=== PATIENT | male | born 1945 | race Caucasian/White ===

== ENCOUNTER 2016-10-29 08:10 | Outpatient (CLI) ==
[2016-10-29 13:09] LABS: BASOPHILS % (AUTO) 0.6 % (0.0-3.0); BILIRUBIN,URINE Negative (NEGATIVE); EOSINOPHILS # (AUTO) 0.2 K/ul (0.0-0.7); EOSINOPHILS % (AUTO) 3.1 % (0.0-7.0); HEMATOCRIT 42.7 % (42.0-52.0); HEMOGLOBIN 13.9 g/dl (14.0-18.0); IMMATURE GRANULOCYTE % (AUTO) 0.4 % (0.0-5.0); KETONES,URINE Negative (NEGATIVE); LEUKOCYTE ESTERASE ,URINE Negative (NEGATIVE); LYMPHOCYTES # (AUTO) 1.4 K/uL (0.60-3.4); LYMPHOCYTES % (AUTO) 24.8 (10.0-50.0); MEAN CORPUSCULAR HEMOGLOBIN 30.4 pg (27.0-31.0); MEAN CORPUSCULAR HGB CONC 32.6 (31.8-35.4); MEAN CORPUSCULAR VOLUME 93.4 fl (80.0-94.0); MONOCYTES # (AUTO) 0.5 K/uL (0.4-2.0); MONOCYTES % (AUTO) 8.3 (0-10); NEUTROPHILS # (AUTO) 3.4 K/ul (2.0-6.9); NEUTROPHILS % (AUTO) 62.8; NITRITE,URINE Negative (NEGATIVE); PLATELET COUNT 212 10^3/uL (140-440); PROTEIN,URINE Negative (NEGATIVE); RED BLOOD COUNT 4.57 10^6/ul (4.70-6.10); URINE, BLOOD Negative (NEGATIVE); WHITE BLOOD COUNT 5.45 K/ul (4.2-10.2)
[2016-10-29 13:12] LABS: ADD URINE MICROSCOPIC NO
[2016-10-29 13:22] LABS: ALBUMIN 3.8 g/dL (3.4-5.0); BILIRUBIN,DIRECT 0.29 mg/dL (0.00-0.30); BILIRUBIN,TOTAL 0.72 mg/dL (0.00-1.20); BUN/CREATININE RATIO 11.36; CALCIUM 9.4 mg/dL (8.2-10.2); CHOL/HDL RATIO 4.3 (4.5-6.4); CREATININE 0.88 mg/dL (0.60-1.10); TOTAL PROTEIN 7.6 g/dL (5.8-8.1)
[2016-10-29 14:43] LABS: ERYTHROCYTE SEDIMENTATION RATE 26 mm/hr (0-15); ESR INTERNAL QC INTERNAL QC VALID
== END 2016-10-29 08:11 | disposition home or self-care (01) ==
LOC: LAB 08:10
PROVIDERS: ATTEND Internal Medicine Rheumatology
DX: M06.9 Rheumatoid arthritis, unspecified (principal); M15.0 Primary generalized (osteo)arthritis; M79.641 Pain in right hand; R53.83 Other fatigue; E11.9 Type 2 diabetes mellitus without complications; E78.5 Hyperlipidemia, unspecified; Z79.899 Other long term (current) drug therapy; K21.9 Gastro-esophageal reflux disease without esophagitis
CPT/HCPCS: 36415; 80053; 80061; 80074; 81001; 82248; 83036; 84100; 85025; 85651; 86140

== ENCOUNTER 2017-01-11 08:09 | Outpatient (CLI) ==
[2017-01-11 13:45] LABS: HEMATOCRIT 40.6 % (42.0-52.0); HEMOGLOBIN 13.7 g/dl (14.0-18.0); MEAN CORPUSCULAR HEMOGLOBIN 31.4 pg (27.0-31.0); MEAN CORPUSCULAR HGB CONC 33.7 (31.8-35.4); MEAN CORPUSCULAR VOLUME 92.9 fl (80.0-94.0); PLATELET COUNT 190 10^3/uL (140-440); RED BLOOD COUNT 4.37 10^6/ul (4.70-6.10); WHITE BLOOD COUNT 5.06 K/ul (4.2-10.2)
[2017-01-11 14:12] LABS: ALBUMIN 3.7 g/dL (3.4-5.0); BILIRUBIN,DIRECT 0.25 mg/dL (0.00-0.30); BILIRUBIN,TOTAL 0.6 mg/dL (0.00-1.20); CREATININE 0.84 mg/dL (0.60-1.10); TOTAL PROTEIN 6.5 g/dL (5.8-8.1)
[2017-01-11 14:30] LABS: ERYTHROCYTE SEDIMENTATION RATE 17 mm/hr (0-15); ESR INTERNAL QC INTERNAL QC VALID
[2017-01-18 07:20] LABS: C-REACTIVE PROTEIN 2.3 mg/L (0.0-4.9)
== END 2017-01-11 08:10 | disposition home or self-care (01) ==
LOC: LAB 08:09
PROVIDERS: ATTEND Internal Medicine Rheumatology
DX: M06.9 Rheumatoid arthritis, unspecified (principal); M15.0 Primary generalized (osteo)arthritis; M79.641 Pain in right hand; R10.13 Epigastric pain; Z79.899 Other long term (current) drug therapy
CPT/HCPCS: 36415; 80074; 80076; 82565; 85027; 85651; 86140

== ENCOUNTER 2017-04-20 09:43 | Outpatient (CLI) ==
[2017-04-20 13:25] LABS: BASOPHILS % (AUTO) 0.5 % (0.0-3.0); EOSINOPHILS # (AUTO) 0.2 K/ul (0.0-0.7); EOSINOPHILS % (AUTO) 2.7 % (0.0-7.0); HEMATOCRIT 39.9 % (42.0-52.0); HEMOGLOBIN 13.5 g/dl (14.0-18.0); IMMATURE GRANULOCYTE % (AUTO) 0.2 % (0.0-5.0); LYMPHOCYTES # (AUTO) 1.2 K/uL (0.60-3.4); LYMPHOCYTES % (AUTO) 20.6 (10.0-50.0); MEAN CORPUSCULAR HEMOGLOBIN 30.9 pg (27.0-31.0); MEAN CORPUSCULAR HGB CONC 33.8 (31.8-35.4); MEAN CORPUSCULAR VOLUME 91.3 fl (80.0-94.0); MONOCYTES # (AUTO) 0.5 K/uL (0.4-2.0); MONOCYTES % (AUTO) 8.9 (0-10); NEUTROPHILS # (AUTO) 3.9 K/ul (2.0-6.9); NEUTROPHILS % (AUTO) 67.1; PLATELET COUNT 221 10^3/uL (140-440); RED BLOOD COUNT 4.37 10^6/ul (4.70-6.10); WHITE BLOOD COUNT 5.83 K/ul (4.2-10.2)
[2017-04-20 13:27] LABS: ALBUMIN 3.7 g/dL (3.4-5.0); BILIRUBIN,DIRECT 0.22 mg/dL (0.00-0.30); BILIRUBIN,TOTAL 0.43 mg/dL (0.00-1.20); CREATININE 0.84 mg/dL (0.60-1.10); TOTAL PROTEIN 6.8 g/dL (5.8-8.1)
[2017-04-20 14:17] LABS: ERYTHROCYTE SEDIMENTATION RATE 21 mm/hr (0-15); ESR INTERNAL QC INTERNAL QC VALID
== END 2017-04-20 09:44 | disposition home or self-care (01) ==
LOC: LAB 09:43
PROVIDERS: ATTEND General Practice
DX: E11.9 Type 2 diabetes mellitus without complications (principal); M06.9 Rheumatoid arthritis, unspecified; R53.83 Other fatigue; Z79.899 Other long term (current) drug therapy
CPT/HCPCS: 36415; 80076; 82565; 85025; 85651; 86141

== ENCOUNTER 2017-04-25 16:31 | Observation (INO) ==
[2017-04-25 17:41] VITALS: BMI 26.3
[2017-04-25 18:55] LABS: BASOPHILS % (AUTO) 0.5 % (0.0-3.0); EOSINOPHILS # (AUTO) 0.2 K/ul (0.0-0.7); HEMOGLOBIN 13.4 g/dl (14.0-18.0); IMMATURE GRANULOCYTE % (AUTO) 0.2 % (0.0-5.0); LYMPHOCYTES # (AUTO) 1.4 K/uL (0.60-3.4); MEAN CORPUSCULAR HEMOGLOBIN 30.3 pg (27.0-31.0); MEAN CORPUSCULAR HGB CONC 33.5 (31.8-35.4); MEAN CORPUSCULAR VOLUME 90.5 fl (80.0-94.0); MONOCYTES # (AUTO) 0.6 K/uL (0.4-2.0); MONOCYTES % (AUTO) 9.4 (0-10); NEUTROPHILS # (AUTO) 3.9 K/ul (2.0-6.9); NEUTROPHILS % (AUTO) 63.9; PLATELET COUNT 184 10^3/uL (140-440); RED BLOOD COUNT 4.42 10^6/ul (4.70-6.10); WHITE BLOOD COUNT 6.09 K/ul (4.2-10.2)
[2017-04-25 19:36] LABS: ALANINE AMINOTRANSFERASE 17 U/L (12-78); ALBUMIN 3.7 g/dL (3.4-5.0); ALBUMIN/GLOBULIN RATIO 1.19; ALKALINE PHOSPHATASE 51 U/L (56-119); ASPARTATE AMINO TRANSFERASE 18 U/L (15-37); BILIRUBIN,TOTAL 0.85 mg/dL (0.00-1.20); BLOOD UREA NITROGEN 11 mg/dL (7-18); BUN/CREATININE RATIO 12.79; CALCIUM 8.9 mg/dL (8.2-10.2); CARBON DIOXIDE 25 mmol/L (23-31); CHLORIDE 105 mmol/L (98-107); CREATINE KINASE 62 U/L; CREATININE 0.86 mg/dL (0.60-1.10); GLUCOSE 92 mg/dL (82-115); SODIUM 141 mmol/L (136-145); TOTAL PROTEIN 6.8 g/dL (5.8-8.1)
--- NOTE | 2017-04-25 20:08 | DI ---
Exam: Two x-rays of the chest. Comparison: 10/23/2015. Reason for exam: Chest pain. FINDINGS: No pneumothorax, pleural effusion, or focal consolidation. The cardiac silhouette is not enlarged. The imaged osseous structures are unremarkable without acute fracture. Impression: No acute cardiopulmonary process.
[2017-04-25] MEDS: ASPIRIN EC PO SCH (20:36)
[2017-04-25] MEDS ORDERED: CYCLOSPORINE OP SCH (21:00)
[2017-04-25] MEDS ORDERED: [UNRECOGNIZED DRUG - OTHER] IV SCH (22:30)
[2017-04-25] MEDS ORDERED: ADDITIVE ONLY IV SCH (22:30)
[2017-04-25] MEDS ORDERED: POTASSIUM CHLORIDE IV SCH (22:30)
[2017-04-25] MEDS ORDERED: INFUVITE ADULT IV SCH (22:30)
[2017-04-25] MEDS ORDERED: BENADRYL PO STA (22:32)
[2017-04-25] MEDS ORDERED: DECADRON 4 MG/ML SDV IM STA (22:32)
[2017-04-25 23:06] LABS: ADD URINE MICROSCOPIC NO; BILIRUBIN,URINE Negative (NEGATIVE); KETONES,URINE Negative (NEGATIVE); LEUKOCYTE ESTERASE ,URINE Negative (NEGATIVE); NITRITE,URINE Negative (NEGATIVE); PROTEIN,URINE Negative (NEGATIVE); URINE, BLOOD Negative (NEGATIVE)
[2017-04-25] MEDS ORDERED: INFUVITE ADULT IV ONE (23:11)
[2017-04-25 23:28] LABS: ABG BASE EXCESS 2 (-2.0-2.0); ABG HCO3 26.4 (22.0-26.0); ABG PCO2 40.4 mmHg (35-45); ABG PH 7.423 (7.35-7.45); ABG TCO2 28 (22.0-28.0)
[2017-04-25] MEDS: INFUVITE ADULT 10 ML in D5%-1/2NS-KCL 20 MEQ/L IV SOL 1,000 ML IV SCH (23:29)
--- NOTE | 2017-04-25 23:56 | CT ---
Exam: CT angiography of the chest History: Elevated D-dimer Technique: [address] of the chest utilizing CT angiography protocol. Multiplanar and th ree-dimensional reformations were performed. FINDINGS: Technically adequate for evaluation of pulmonary arteries and aorta. There are no pulmon mono artery filling defects. Trace right pleural fluid and right lower lobe nodular consolidative ar eas. 7 mm and 13 mm nodules are present. Atherosclerotic calcification of the aorta without aneury sm. No pathologic lymph node enlargement or abundance of mediastinum. No acute findings of the [address] wall soft tissues or bony thorax. No acute findings of the upper abdomen. Impression: 1. Right lower lobe consolidative nodular areas favoring infectious nodules. Follow-up recommended after treatment convalescence. 2. Trace right pleural fluid 3. No evidence of pulmonary artery thrombus
[2017-04-26 05:45] LABS: CHOL/HDL RATIO 3.9 (4.5-6.4)
[2017-04-26] MEDS ORDERED: GLUCOPHAGE PO SCH (08:00)
[2017-04-26] MEDS: PROTONIX PO SCH (08:19)
[2017-04-26] MEDS: CYCLOSPORINE OP SCH ×2 (08:20→21:57)
[2017-04-26] MEDS: FOLIC ACID PO SCH (08:23)
[2017-04-26] MEDS: CALCIUM 500 + VIT D 200 MG TABLET PO SCH (08:23)
[2017-04-26] MEDS: MULTIVITAMIN PO SCH (08:23)
[2017-04-26] MEDS ORDERED: NON-FORMULARY MEDICATION (Calcium Carbonate/Vitamin D3 [Calcium 600-Vit D3 200 Tablet] 1 E PO SCH (09:00)
[2017-04-26] MEDS ORDERED: ZOCOR PO SCH ×2 (09:00→21:00)
[2017-04-26] MEDS ORDERED: NON-FORMULARY MEDICATION (Simvastatin [Simvastatin] 20 MG) PO SCH ×22 (09:00)
[2017-04-26] MEDS ORDERED: [UNRECOGNIZED DRUG - MIXTURE] PO SCH (09:00)
[2017-04-26] MEDS ORDERED: FOLIC ACID 0.8 MG PO SCH (09:00)
[2017-04-26 09:07] LABS: ERYTHROCYTE SEDIMENTATION RATE 26 mm/hr (0-15); ESR INTERNAL QC INTERNAL QC VALID
--- NOTE | 2017-04-26 09:44 | PCM.CONS ---
CONSULTING PROVIDER: Dr. JACK OCONNELL ATTENDING PROVIDER: Dr. KORIN [facility] DATE OF SERVICE: 04/26/17 SUBJECTIVE: This 71 year old WHITE/ M was hospitalized 04/25/17. The patient is seen with Elena, Nurse Practitioner. The patient was admitted for chest pain yesterday. He is sitting in the chair and states he has no chest pain today. REVIEW OF SYSTEMS: CONSTITUTIONAL: No night sweats. No fatigue, malaise, lethargy. No fever or chills. HEENT: Eyes: No visual changes. No eye pain. No eye discharge. ENT: No runny nose. No epistaxis. No sinus pain. No odynophagia. No congestion. RESPIRATORY: No cough, no congestion. No hemoptysis. CARDIOVASCULAR: No angina symptoms. No CHF symptoms. No atypical chest pain for CAD. No palpitations. No shortness of breath. GASTROINTESTINAL: No abdominal pain. No nausea or vomiting. No diarrhea or constipation. No hematemesis. No hematochezia. GENITOURINARY: No urgency. No frequency. No dysuria. No hematuria. No obstructive symptoms. No discharge. No pain. No significant abnormal bleeding. MUSCULOSKELETAL: No musculoskeletal pain; no joint swelling. NEUROLOGICAL: Awake, alert, oriented to time, place and person. No headache. No neck pain. No syncope. No seizures. No dizziness. PSYCHIATRIC: Not anxious. No depression. No suicidal thoughts. No homicidal thoughts. SKIN: No rash. No lesions. No wounds. ENDOCRINE: No unexplained weight loss. No weight gain. HEMATOLOGIC/LYMPHATIC: No anemia. No purpura. No petechiae. No prolonged or excessive bleeding. No palpable lymph nodes. PHYSICAL EXAMINATION: GENERAL: The patient is awake, alert and oriented, sitting in chair in no distress. VITAL SIGNS: Temperature 97.0 F, Pulse 72, Respiratory Rate 18, BP 124/84, Pulse Ox 98% HEENT: Head normocephalic, atraumatic. Eyes: Extraocular muscles are intact. Pupils are equal, round and reactive to light and accommodation. Ears: No lesions. Nose appeared normal. Throat: No exudate or erythema. NECK: Supple. No JVD, no carotid bruit. No lymphadenopathy or thyromegaly. LUNGS: Clear to auscultation. Percussion note normal. Chest symmetrical. HEART: S1, S2, no S3. No murmurs. No cyanosis or clubbing. No ascites. Pulses: Dorsalis pedis and posterior tibial pulses +1 to +2 both sides. ABDOMEN: Soft. Non-tender. Bowel sounds active. No CVA tenderness. No mass felt. EXTREMITIES: No edema. Full range of motion of all extremities, equal. NEUROLOGIC: No focal deficit. Cranial nerves II through XII are grossly intact. No headache, no double vision or headache. SKIN: Not dry. Intact. Turgor-normal. LYMPHATIC: No palpable lymph nodes/no lymphedema. MUSCULOSKELETAL: Normal joints with no swelling. Muscle tone is normal. LAB REVIEW: 04/25/17 18:50 04/25/17 18:50 04/26/17 04:10: Triglycerides 73, Cholesterol 139, LDL Cholesterol, Calc 88, VLDL Cholesterol 15, HDL Cholesterol 36, Cholesterol/HDL Ratio 3.9 L 04/25/17 23:00: Urine Color Yellow, Urine Clarity Clear, Urine pH 7.0, Ur Specific [place] 1.015, Urine Protein Negative, Urine Glucose (UA) Negative, Urine Ketones Negative, Urine Blood Negative, Urine Nitrite Negative, Urine Bilirubin Negative, Urine Urobilinogen 0.2, Ur Leukocyte Esterase Negative 04/25/17 22:23: Puncture Site Rr, O2 Saturation 97.0, ABG pH 7.423, ABG pCO2 40.4, ABG pO2 89.0, ABG HCO3 26.4 H, ABG Total CO2 28, ABG Base Excess 2, Osman Test +, FiO2 % 21.0 04/25/17 21:45: Hemoglobin A1c 6.0 04/25/17 21:40: D-Dimer (Manual) 820.74 04/25/17 18:50: WBC 6.09, RBC 4.42 L, Hgb 13.4 L, Hct 40.0 L, MCV 90.5, MCH 30.3 , MCHC 33.5, RDW Coeff of Dev 13.2, Plt Count 184, Immature Gran % (Auto) 0.2, Neut % (Auto) 63.9, Lymph % (Auto) 23.0, [place] % (Auto) 9.4, Eos % (Auto) 3.0, Baso % (Auto) 0.5, Immature Gran # (Auto) 0.0, Neut # 3.9, Lymph # 1.4, [place] # 0.6, Eos # 0.2, Baso # 0.0, Sodium 141, Potassium 4.0, Chloride 105, Carbon Dioxide 25, Anion Gap 15.0, BUN 11, Creatinine 0.86, Estimated GFR (MDRD) 87.00 , BUN/Creatinine Ratio 12.79, Glucose 92, Calcium 8.9, Total Bilirubin 0.85, AST 18, ALT 17, Alkaline Phosphatase 51 L, Total Creatine Kinase 62, Troponin I < 0.0100, Total Protein 6.8, Albumin 3.7, Globulin 3.1, Albumin/Globulin Ratio 1.19, TSH 1.382 ASSESSMENT: 1. Chest pain 2. Dyslipidemia 3. Diabetes mellitus Type 2 4. Rheumatoid arthritis 5. Anemia 6. GERD RECOMMENDATIONS/PLAN: 1. Sed rate today 2. PFT 3. Echocardiogram 4. Dobutamine stress 5. Will continue to follow Plan and coordination of the patient's care discussed in the presence of Merchandise Coordinator and Nurse. CONDITION: Stable SCRIBED BY: Gilberto LEE scribed while in presence of service performed by Dr. JACK OCONNELL/ELENA KILPATRICK APRN on 04/26/17 ([id number])
[2017-04-26] MEDS: NON-FORMULARY MEDICATION (Tadalafil [Cialis] 5 MG) PO SCH (10:17)
[2017-04-26] MEDS: ROCEPHIN 2 GM in SODIUM CHLORIDE 100 ML IV SCH (10:21)
[2017-04-26] MEDS: ZITHROMAX 500 MG in SODIUM CHLORIDE 250 ML IV SCH (11:24)
--- NOTE | 2017-04-26 14:12 | ECHOSTRESS ---
Date of Exam: 04/26/17 Ordering Physician: JACK OCONNELL Reason for Echo: CHEST PAIN, STRESS TEST--NO ISCHEMIA M-Mode Normal Adult Results LV Dimensions Normal Adult Results AoV Opening excursions >1.6 LVEDD-base- 3.5-5.8 Ao root dimensions 2.0-3.7 LVESD-base- 3.1-4.6 L. Atrium dimensions 1.9-3.8 Post. Wall thickness 0.8-1.1 IV septum (thickness) 0.7-1.2 Post. Wall excursion 0.72-1.3 Septal motion Systolic motion R. Ventricular cavity 1.5-2.0 LVEF 60% Paradoxical septal wall motion 2-D: NORMAL LEFT VENTRICULAR CONTRACTILITY--RESTING AND POST EXERCISE M-MODE: MV: AV: TV: PV: CHAMBER SIZE: WALL MOTION: NORMAL LEFT VENTRICULAR CONTRACTILITY--RESTING AND POST EXERCISE PERICARDIUM: INTERPRETATION: 1. NORMAL LEFT VENTRICULAR CONTRACTILITY--RESTING AND POST EXERCISE MTDD
--- NOTE | 2017-04-26 14:32 | STRESSMOD ---
Ordering Physician: JACK OCONNELL Date of Test: 04/26/17 Medical History: CHEST PAIN Current Medications: SIMVASTATIN, METFORMIN, CIALIS, METHOTREXATE, IRON Physical Findings: S1, S2, NO S3 Resting EKG: SINUS RHYTHM/ NO ACUTE CHANGES Target Heart Rate: 124 STAGE MPH/GRADE HEART RATE BPM BLOOD PRESSURE mmhg RHYTHM S-T SEGMENT UP DOWN SYMPTOMS,COMMENTS At Rest 90 144/80 SR X NONE 1 1.7/0% 114 130/60 SR X NONE 2 1.7/5% 3 1.7/10% 4 2.5/12% 5 3.4/14% 6 4.2/16% 7 5.18% Immediately after 128 140/50 SR X FATIGUE Total Time: 5:01 Maximum Heart Rate Reached: 128 Reason for Termination: FATIGUE 4 MIN POST EXERCISE: HR 96 BPM, BP 162/60 MMHG, SR, +/- INTERPRETATION: 98% OXYGEN SATURATION WITH EXERCISE ON ROOM AIR 1. NO EVIDENCE OF ISCHEMIA BY ST-T WAVE 2. NO CHEST PAIN OR CHEST DISCOMFORT 3. BLOOD PRESSURE RESPONSE: NORMAL 4. NO ARRHYTHMIAS NORMAL LEFT VENTRICULAR CONTRACTILITY--RESTING AND POST EXERCISE MTDD
[2017-04-26] MEDS: ASPIRIN EC PO SCH (22:00)
[2017-04-26 22:42] VITALS: TEMP 97.5
[2017-04-27] MEDS ORDERED: INFUVITE ADULT IV ONE (02:21)
[2017-04-27] MEDS: INFUVITE ADULT 10 ML in D5%-1/2NS-KCL 20 MEQ/L IV SOL 1,000 ML IV SCH ×4 (03:01→12:31)
[2017-04-27] MEDS: PROTONIX PO SCH (05:57)
[2017-04-27] MEDS: MULTIVITAMIN PO SCH (08:05)
[2017-04-27] MEDS: FOLIC ACID PO SCH (08:05)
[2017-04-27] MEDS: CALCIUM 500 + VIT D 200 MG TABLET PO SCH (08:05)
[2017-04-27] MEDS: ROCEPHIN 2 GM in SODIUM CHLORIDE 100 ML IV SCH (08:05)
[2017-04-27] MEDS: CYCLOSPORINE OP SCH (08:06)
[2017-04-27] MEDS: NON-FORMULARY MEDICATION (Tadalafil [Cialis] 5 MG) PO SCH (08:07)
[2017-04-27] MEDS ORDERED: NON-FORMULARY MEDICATION (Ferrous Sulfate [Iron] 325 MG) PO SCH ×22 (09:00)
[2017-04-27] MEDS ORDERED: FERROUS SULFATE PO SCH ×2 (09:00→21:00)
--- NOTE | 2017-04-27 09:08 | PCM.CONS ---
CONSULTING PROVIDER: Dr. JACK OCONNELL ATTENDING PROVIDER: [facility]. [facility] DATE OF SERVICE: 04/27/17 SUBJECTIVE: This 71 year old WHITE/ M was hospitalized 04/25/17. The patient is seen in consultation. The patient is hospitalized with chest pain and cough. Chest pain seems more pleuritic in type. The patient has rheumatoid arthritis and is on Methotrexate. This could be chronic lung disease on basis of rheumatoid arthritis. Cardiovascular status is stable. REVIEW OF SYSTEMS: CONSTITUTIONAL: No night sweats. No fatigue, malaise, lethargy. No fever or chills. HEENT: Eyes: No visual changes. No eye pain. No eye discharge. ENT: No runny nose. No epistaxis. No sinus pain. No odynophagia. No congestion. RESPIRATORY: No cough, no congestion. No hemoptysis. CARDIOVASCULAR: No angina symptoms. No CHF symptoms. No chest pain now. No palpitations. No shortness of breath. No PND, no orthopnea. No chest discomfort with exertion. GASTROINTESTINAL: No abdominal pain. No nausea or vomiting. No diarrhea or constipation. No hematemesis. No hematochezia. GENITOURINARY: No urgency. No frequency. No dysuria. No hematuria. No obstructive symptoms. No discharge. No pain. No significant abnormal bleeding. MUSCULOSKELETAL: No musculoskeletal pain; no joint swelling. NEUROLOGICAL: Awake, alert, oriented to time, place and person. No headache. No neck pain. No syncope. No seizures. No dizziness. PSYCHIATRIC: Not anxious. No depression. No suicidal thoughts. No homicidal thoughts. SKIN: No rash. No lesions. No wounds. ENDOCRINE: No unexplained weight loss. No weight gain. HEMATOLOGIC/LYMPHATIC: No anemia. No purpura. No petechiae. No prolonged or excessive bleeding. No palpable lymph nodes. PHYSICAL EXAMINATION: GENERAL: The patient is awake, alert and oriented, standing beside the bed in no distress. VITAL SIGNS: Temperature 97.5 F, Pulse 64, Respiratory Rate 20, BP 134/76, Pulse Ox 98% HEENT: Head normocephalic, atraumatic. Eyes: Extraocular muscles are intact. Pupils are equal, round and reactive to light and accommodation. Ears: No lesions. Nose appeared normal. Throat: No exudate or erythema. NECK: Supple. No JVD, no carotid bruit. No lymphadenopathy or thyromegaly. LUNGS: Few dry creps at the bases. Percussion note normal. Chest symmetrical. HEART: S1, S2, no S3. No murmurs. No cyanosis or clubbing. No ascites. Pulses: Dorsalis pedis and posterior tibial pulses +1 to +2 both sides. ABDOMEN: Soft. Non-tender. Bowel sounds active. No CVA tenderness. No mass felt. EXTREMITIES: No pedal edema. Full range of motion of all extremities, equal. NEUROLOGIC: No focal deficit. Cranial nerves II through XII are grossly intact. No headache, no double vision or headache. SKIN: Not dry. Intact. Turgor-normal. LYMPHATIC: No palpable lymph nodes/no lymphedema. MUSCULOSKELETAL: Normal joints with no swelling. Muscle tone is normal. LAB REVIEW: 04/25/17 18:50 04/25/17 18:50 04/26/17 09:50: Procalcitonin < 0.05 04/26/17 04:20: ESR 26 H ASSESSMENT: 1. Chest pain, noncardiac with negative cardiac markers, EKG and stress echocardiogram. 2. The patient is being treated for bronchitis and pneumonia with chronic lung disease. 3. Cardiovascular status is stable. RECOMMENDATIONS/PLAN: I will sign out of case. Thanks for the referral. Plan and coordination of the patient's care discussed in the presence of Restaurant Crew Member and Nurse. CONDITION: Stable. SCRIBED BY: PHI LEVIN Resource Analyst scribed while in presence of service performed by Dr. JACK OCONNELL on 04/27/17 ([id number])
[2017-04-27] MEDS: ZITHROMAX 500 MG in SODIUM CHLORIDE 250 ML IV SCH (09:29)
[2017-04-27 09:57] VITALS: BP 142/69
--- NOTE | 2017-04-27 10:49 | CONS ---
DATE OF CONSULTATION: 04/26/17 The patient was seen with Nurse Practitioner REASON FOR CONSULTATION: Chest pain HISTORY OF PRESENT ILLNESS: The patient is a 71 year old white male hospitalized with chest pain on . The patient's chest pain is right shoulder going the front anteriorly like heaviness and tightness. It happened during three nights and past several days unrelated to exertion. He does all this routine activity of daily living with no problems at all with the chest tightness or pain. The patient is non- exertional. The patient had couple of times workup for this type of problem in some other hospital which was negative during past several years. REVIEW OF SYSTEMS: CONSTITUTIONAL: No night sweats. No fatigue, malaise, lethargy. No fever or chills. HEENT: Eyes: No visual changes. No eye pain. No eye discharge. ENT: No runny nose. No epistaxis. No sinus pain. No sore throat. No odynophagia. No ear pain. No congestion. RESPIRATORY: No cough, no congestion. No hemoptysis. CARDIOVASCULAR: No angina symptoms. No CHF symptoms. No atypical chest pain for CAD. No palpitations. No shortness of breath. GASTROINTESTINAL: No abdominal pain. No nausea or vomiting. No diarrhea or constipation. No hematemesis. No hematochezia. GENITOURINARY: No urgency. No frequency. No dysuria. No hematuria. No obstructive symptoms. No discharge. No pain. No significant abnormal bleeding. MUSCULOSKELETAL: No musculoskeletal pain. No joint swelling. NEUROLOGICAL: No headache. No neck pain. No syncope. No seizures. No dizziness. PSYCHIATRIC: Not anxious. No depression. No suicidal thoughts. No homicidal thoughts. SKIN: No rash. No lesions. No wounds. ENDOCRINE: No unexplained weight loss. No weight gain. HEMATOLOGIC/LYMPHATIC: No anemia. No purpura. No petechiae. No prolonged or excessive bleeding. No palpable lymph nodes. PHYSICAL EXAMINATION: GENERAL: The patient is oriented to time, place and person. VITAL SIGNS: Temperature 97, pulse 72, respiratory rate 18, blood pressure 124/ 84 and pulse ox 98%. HEENT: Head normocephalic, atraumatic. Eyes: Extraocular muscles are intact. Pupils are equal, round and reactive to light and accommodation. Ears: No lesions. Nose appeared normal. Throat: No exudate or erythema. NECK: Supple. No JVP, no carotid bruit. No lymphadenopathy or thyromegaly. LUNGS: Clear to auscultation. Percussion note normal. Chest symmetrical. HEART: S1, S2, no S3. No murmurs. No cyanosis or clubbing. No ascites. Pulses: Dorsalis pedis and posterior tibial pulses +1 bilaterally. PMI not palpable on auscultation. No pericardial rub. ABDOMEN: Soft. Nontender. Bowel sounds active. No CVA tenderness. No mass felt. EXTREMITIES: No edema. Full range of motion of all extremities, equal. NEUROLOGIC: No focal deficit. Cranial nerves II through XII are grossly intact. No headache, no double vision or headache. SKIN: Not dry. Intact. Turgor - normal. LYMPHATIC: No palpable lymph nodes/no lymphedema. MUSCULOSKELETAL: Normal joints with no swelling. Muscle tone is normal. LABS: EKG sinus rhythm, no acute changes. Telemetry sinus rhythm, no ST-T wave change. Cardiac markers are negative. Troponin negative. Hgb 13.4, hct 40, WBC 6 ,000 normal differential, creatinine 0.8, BUN 11, potassium 4. ASSESSMENT: 1. Chest pain, seems to be non-cardiac PLAN: 1. Echocardiogram and stress echo 2. The patient has several risk factors for coronary artery disease like hypertension, dyslipidemia. 3. History of Rheumatoid arthritis followed by Dr. Tilley. CONDITION: Stable. MTDD
--- NOTE | 2017-04-27 14:03 | HP ---
CHIEF COMPLAINT: Chest heaviness, pain uppermost anterior chest radiating around the neck towards the back upon taking a deep breath. SOURCE OF HISTORY: Patient and his . HISTORY OF PRESENT ILLNESS: The patient had experienced anterior chest heaviness March 10, 2017 and was seen at the emergency room in [place], [place]. The patient's D-Dimer was elevated and then had a CTA. No pulmonary emboli was noted, but the patient was found to have some subpleural nodules about 9 x 8 mm' s. There were small nodules that measured two to three mm's. The pleural was thickened. The patient was advised to have a repeat CT in about 6 months. The patient, today, presented because of the pain last night described as heaviness with pain upon taking a deep breath in the upper most area of the chest, bilateral radiating around the neck towards the back at about the same level. The patient did not have any diaphoresis or any shortness of breath, but his mentioned that indeed the patient has that and will take about a few days to rest. The pain doesn't seem to be related to the anterior chest heaviness to exertion. His mentioned that he had mowed his yard with a asian studies professor that is self propelled and never had any chest pain. Because of the anterior chest heaviness, as well as pain upon taking a deep breath, that he was advised admission. I did advise him that he would need a cardiac work-up and a consultation with Dr. Bailey who would subsequently perform the tests if he felt necessary. The patient's first reaction was he does not want to be admitted to the hospital. I did tell him that he needed a work-up. He told me that he had one a year ago, but I do not have any records of that being done at my direction. We don't have records of that also at the office. This patient was diagnosed to have rheumatoid arthritis and had seen two molder machine tender for the problem. He is prescribed Methotrexate by Dr. Tilley. PAST PERSONAL HISTORY: The patient had surgery to his ears from congenital problems. Chest pain and was at [place], [place] for the problem. Previous cholecystectomy recently. A colonoscopy 2012 and endoscopy 2012. FAMILY HISTORY: Two brothers are in good health. He had seven sisters, one had myocardial infarction, another sister had diabetes mellitus, another on has Lupus. There is some history of cancer, heart disease and diabetes in the family. Father had heart disease and mother had a fractured hip, otherwise unremarkable. SOCIAL HISTORY: The patient is and resides with his . He stopped smoking some time ago and is a social drinker. He denies any substance abuse. MEDICATIONS: Prior to this admission Calcium plus Vitamin D one tablet daily Multivitamin one daily Cialis 5 mg daily Folic Acid 800 mcg daily Protonix 40 mg daily Metformin 500 mg daily Simvastatin 20 mg daily Restasis one drop to the eye twice a day Ferrous Sulfate 325 mg tablet every two days Aspirin 81 mg daily Methotrexate Sodium 12.5 mg daily ALLERGIES: No known drug allergies. REVIEW OF SYSTEMS: CONSTITUTIONAL: The patient has no fever, no chills and no fatigue. STEAM CRANE OPERATOR: No headaches. No history of seizure problems. No history of syncope. The patient denies any ataxia. VISUAL: Denies any blurred vision, double vision or transient loss of vision. 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 The patient, however, is able to hear. He denies any tinnitus, pain or drainage. RESPIRATORY: The patient has no significant cough, but has pain during inspiration. The pain is mostly in the uppermost chest, anterior, radiating around the neck towards the back. CARDIOVASCULAR: The patient does have recurrent anterior chest heaviness with some shortness of breath without any diaphoresis or nausea or vomiting. GASTROINTESTINAL: Denies any dysphagia. The patient had endoscopy 2012. The patient weighs about the same since about six weeks ago. GENITOURINARY: The patient denies any pain on urination or frequency. MUSCULOSKELETAL: The patient had rheumatoid arthritis and has pain with the hand , as well as shoulders. INTEGUMENT: No rash or pruritus. ENDOCRINE: Denies any frequency or excessive thirst. HEMATOLOGIC: Denies any history of prolonged bleeding or easy bruising. PSYCHIATRIC: Affect is normal. PHYSICAL EXAMINATION: GENERAL: The patient is alert, oriented times four, not dyspneic, nor tachypneic without any chest pain. The patient, however, had recurrent anterior chest tightness or oppression or heaviness a few times in the last month and this month. The pain seemed to start from the right shoulder towards the neck and then the anterior chest with heaviness. His general appearance is good. VITAL SIGNS: On admission, temperature 97.6, pulse 67, blood pressure left 134/ 79, right 136/80, respiratory rate 18. He is 5'8", 173 pounds and 1.6 ounces. HEAD: Unremarkable. FACE: Symmetrical and equal with no facial weakness and no tenderness to palpation under pressure in the frontal or maxillary sinus areas. EYES: Pupils equal/reactive to light about 3 mm in size. Conjunctivae not pale. Sclerae not icteric. MOUTH: Unremarkable. THROAT: No inflammation, tumors or exudate. NECK: No masses. No bruit. No tenderness. No rigidity. CHEST: Essentially symmetrical and equal with some tenderness mostly in the right shoulder, posterior area, as well as anterior. There is no redness in the shoulders. LUNGS: Breath sounds are heard in both sides. No rales or wheezing. HEART: Audible and regular with good tones. No murmurs. ABDOMEN: Flat, soft with scar from previous cholecystectomy, laparoscopic. No remarkable tenderness. Bowel sounds are active and no masses palpable and no bruit. EXTERNAL GENITALIA: Not examined. RECTAL: Not performed. LOWER EXTREMITIES: Symmetrical and equal with no significant edema. Pedal pulses present. Volume somewhat diminished. UPPER EXTREMITIES: Symmetrical and equal. ASSESSMENT: 1. ANTERIOR CHEST OPPRESSION OR HEAVINESS, RULE OUT UNSTABLE ANGINA 2. PAIN UPON TAKING A DEEP BREATH, UPPER ANTERIOR CHEST RADIATING AROUND THE NECK TO THE BACK, PLEURITIS. 3. HISTORY OF THICKENED PLEURAL 4. HISTORY OF NODULES 9 X 8 MM'S 5. HISTORY OF CHRONIC TOBACCO USE, STOPPED SEVERAL YEARS AGO 6. ERECTILE DYSFUNCTION ON CIALIS 7. DIABETES MELLITUS TYPE II 8. HISTORY OF GASTROESOPHAGEAL REFLUX DISEASE, QUESTIONABLE, HAD ENDOSCOPY 2012 9. ANEMIA 10. HISTORY OF RHEUMATOID ARTHRITIS UNDER THE CARE OF A CORE LOADER 11. DYSLIPIDEMIA PLAN: 1. EKG, cardiac enzymes, chest x-ray. 2. CBC, CMP, urinalysis, TSH, A1C, D-Dimer. 3. Consultation with Dr. Bailey for further work-up with regards to the chest tightness or heaviness. 4. Probably repeat a chest CT with contrast tomorrow, but if the D-Dimer is elevated that he would have one today. This patient, according to him, had been exposed asbestos. MTDD
--- NOTE | 2017-04-27 14:48 | PN ---
DATE OF ENTRY: 04/25/17 Additional notes: The D-Dimer is elevated above 500 and with pleuritic pain, a CTA of chest to rule out pulmonary emboli is requested for tonight. His blood sugar is normal. The A1C was requested. Arterial blood gases are also requested to see if there is any desaturation. The patient's estimated GFR is 87. The BUN is 11, creatinine is 0.86. I did ask him about the CTA that was done in [place] and if he had any problems. He said he had a little bit of burning sensation in the upper lip to the right, but very small and maybe questionable swelling. I asked him how long did that last and he said two hours. He didn't have any rash, swelling or itching. Because of that questionable reaction, the patient is given Benadryl 25 mg p.o. and Decadron 4 mg IM. The p.o. was already given by the nurse. I wanted the nurse to wait for about 35 or 40 minutes before the CTA. I also did talk to the technologist, Kj. BENY
--- NOTE | 2017-04-28 13:43 | ECHO2D ---
Date of Exam: 04/26/17 [facility]ing Phys[facility] Reason for Echo: CHEST PAIN M-Mode Normal Adult Results LV Dimensions Normal Adult Results AoV Opening excursions >1.6 >1.6 LVEDD-base- 3.5-5.8 3.8 Ao root dimensions 2.0-3.7 3.8 LVESD-base- 3.1-4.6 L. Atrium dimensions 1.9-3.8 3.8 Post. Wall thickness 0.8-1.1 0.9 IV septum (thickness) 0.7-1.2 0.9 Post. Wall excursion 0.72-1.3 NORMAL Septal motion NORMAL Systolic motion R. Ventricular cavity 1.5-2.0 NORMAL LVEF 60% 63% Paradoxical septal wall motion NORMAL 2-D : 2-D M Mode Echocardiogram was performed using apical four chamber and left parasternal long and short axis views. Mitral, tricuspid and aortic valves appear to be normal. Contractility of the left ventricle seems to be normal, so is the cavity size. Left atrial cavity size and aortic root appear to be normal. There is no pericardial effusion. There is no thrombus noted in the left ventricular or left aortic cavity. No mitral valve prolapse noted. M-MODE: MV: NORMAL AV: NORMAL TV: NORMAL PV: CHAMBER SIZE: NORMAL WALL MOTION: NORMAL PERICARDIUM: NORMAL INTERPRETATION: 1. NORMAL 2 "D" "M" MODE ECHO MTDD
--- NOTE | 2017-04-29 10:31 | PN ---
DATE OF VISIT: 04/26/2017 The patient, today, is alert and oriented times four. This patient had the stress echo sometime in the early afternoon. The patient's stress test was negative for ischemia and echocardiogram was normal with a normal left ventricular ejection fraction at 63. The patient did not have any chest pain, however, the patient has an enlarging lesion in the right lower lobe. I told him that I would then continue the antibiotic until I have discussed this with the radiologist tomorrow as to the presence of the consolidation in the right lower lobe. The patient was agreeable and I did inform him that if indeed this thing is bigger that he will be referred to a perfume maker after a PET scan, more so if it is positive. BENY
[2017-05-02] MEDS ORDERED: RHEUMATREX PO SCH (09:00)
--- NOTE | 2017-05-03 11:06 | DS ---
PATIENT IDENTIFICATION: 71-year-old male who was seen at the office initially because of pain described as heaviness in the anterior chest involving both the shoulders. The pain seemed to begin at the right shoulder and goes toward the neck and then the anterior chest. The pain was not accompanied by nausea, diaphoresis or weakness. He had similar pain last March 10, 2017 and presented to the emergency room in [place], [place]. The patient, at that time had slightly elevated D. dimer and CTA of chest negative for PE. The chest CT however identified a nodule measuring 9 x 8 mm. The doctor recommended a 6 month followup, Because of the anterior chest heaviness and recurrence, the patient was advised admission for further workup to rule out any coronary artery disease with unstable angina. Physical examination during admission was unremarkable. The workup during this admission consisted of: Chest x-ray which was normal. CT showed an increasing size of the mass from 9 x 8 mm to 1.33 cm. Labs showed mild anemia. Hemoglobin 13.4, hematocrit 40, RBC 4.28, ESR 26. Arterial blood gases are normal. CMP normal. Troponin normal. CK normal at 62. Urinalysis normal. Lipid normal except for slightly lower HDL at 36. The rest are on target. Procalcitionin 0.05, TSH 1.382. Echocardiogram unremarkable. Ejection fraction left ventricular 63%. Stress test negative for ischemia. No arrhythmia. No chest discomfort. CT chest was reviewed with the radiologist, Dr. Garay, and he noted that the mass described is in the same location as the mass that has increased to 1.3. Based upon that he doesn't believe that this patient has an infectious process. Initially, the recommendation was treat the problem, consolidation and repeat. The patient was then given Zithromax 500 mg daily intravenously with Rocephin 1 gm intravenously daily. I informed the patient that we will continue the medication in the oral form. He is prescribed Zithromax 250 mg two tablets tomorrow in the afternoon. He is also prescribed Omnicef 300 mg capsule #10 to be taken twice a day. He is scheduled for a PET scan at [facility] and I will see him after PET scan is done. I did tell them that the recommendation for further examination of the lesions like that is biopsy and followed by a PET scan if it is abnormal or the old recommendation is PET scan and if positive, followed by biopsy. The patient opted to have a PET scan and doesn't want any needle in his body unless there is a good probability that he has a tumor. The patient, at time of discharge, was alert, ambulatory without any chest pain or chest oppression. PHYSICAL EXAM: The vital signs at 9:56 a.m. showed a temperature 97.5 oral, pulse 74, BP 142/69 , respiratory rate 20, oxygen saturation 98% on room air. He is alert, oriented without any chest pain. LUNGS: Lungs are clear to auscultation on both sides. HEART: Heart is normal sinus rhythm with no murmurs. ABDOMEN: Abdomen shows no remarkable tenderness. EXTREMITIES: Lower extremities in the calf muscles. The patient is then discharged, is given a prescription for Zithromax as well as Omnicef scheduled on 05/02/17 for PET scan at [facility]. Keep appointment with me on 05/05/17. It was explained to him to stop the antibiotic if he has more than three bowel movements. The patient, this morning, already had two. FINAL DIAGNOSES: 1. RIGHT LOWER LOBE CONSOLIDATION LARGER, 1.3 CM 2. PLEURITIS, MUCH IMPROVED. 3. NEGATIVE STRESS TEST FOR ISCHEMIA 4. NORMAL ECHOCARDIOGRAM, LEFT VENTRICULAR EJECTION FRACTION 63% 5. HISTORY OF GERD 6. HISTORY OF ANEMIA MILD, PERSISTENT 7. HISTORY OF RHEUMATOID ARTHRITIS ON METHOTREXATE 12.5 MG DAILY 8. HISTORY OF ERECTILE DYSFUNCTION MTDD
== END 2017-04-27 13:00 | disposition home or self-care (01) ==
LOC: MEDSURG B 16:31 → INTOOBSV 16:31 → UNDOADMOB 16:31 → UNDODISOB 04-27 13:00
PROVIDERS: ADMIT General Practice; ATTEND General Practice
DX: R91.8 Other nonspecific abnormal finding of lung field (principal); R09.1 Pleurisy; R07.89 Other chest pain; K21.9 Gastro-esophageal reflux disease without esophagitis; D64.9 Anemia, unspecified; M06.9 Rheumatoid arthritis, unspecified; R79.1 Abnormal coagulation profile; E11.9 Type 2 diabetes mellitus without complications; E78.5 Hyperlipidemia, unspecified; N52.9 Male erectile dysfunction, unspecified; Z79.84 Long term (current) use of oral hypoglycemic drugs; Z79.899 Other long term (current) drug therapy
CPT/HCPCS: 36415; 80053; 80061; 81001; 82550; 82803; 83036; 84145; 84443; 84484; 85025; 85379; 85651; 87040; 87070; 93005; 93010

== ENCOUNTER 2017-07-14 16:04 | Outpatient (CLI) | END 2017-07-14 16:05 | disposition home or self-care (01) | LOC: LAB 16:04 | PROVIDERS: ATTEND General Practice | DX: R19.7 Diarrhea, unspecified (principal) | CPT/HCPCS: 87493 ==

== ENCOUNTER 2017-09-19 13:14 | Outpatient (CLI) ==
[2017-09-19 13:41] LABS: BASOPHILS % (AUTO) 0.6 % (0.0-3.0); EOSINOPHILS # (AUTO) 0.1 K/ul (0.0-0.7); EOSINOPHILS % (AUTO) 2.6 % (0.0-7.0); HEMATOCRIT 41.4 % (42.0-52.0); HEMOGLOBIN 14.1 g/dl (14.0-18.0); IMMATURE GRANULOCYTE % (AUTO) 0.2 % (0.0-5.0); LYMPHOCYTES # (AUTO) 1.1 K/uL (0.60-3.4); LYMPHOCYTES % (AUTO) 20.6 (10.0-50.0); MEAN CORPUSCULAR HEMOGLOBIN 31.2 pg (27.0-31.0); MEAN CORPUSCULAR HGB CONC 34.1 (31.8-35.4); MEAN CORPUSCULAR VOLUME 91.6 fl (80.0-94.0); MONOCYTES # (AUTO) 0.5 K/uL (0.4-2.0); NEUTROPHILS # (AUTO) 3.7 K/ul (2.0-6.9); PLATELET COUNT 183 10^3/uL (140-440); RED BLOOD COUNT 4.52 10^6/ul (4.70-6.10); WHITE BLOOD COUNT 5.44 K/ul (4.2-10.2)
[2017-09-19 13:52] LABS: BILIRUBIN,URINE Negative (NEGATIVE); KETONES,URINE Negative (NEGATIVE); LEUKOCYTE ESTERASE ,URINE Negative (NEGATIVE); NITRITE,URINE Negative (NEGATIVE); PROTEIN,URINE Negative (NEGATIVE); URINE, BLOOD Negative (NEGATIVE)
[2017-09-19 13:59] LABS: ALBUMIN 3.7 g/dL (3.4-5.0); ALBUMIN/GLOBULIN RATIO 1.03; BILIRUBIN,TOTAL 0.46 mg/dL (0.00-1.20); BUN/CREATININE RATIO 11.11; CALCIUM 9.4 mg/dL (8.2-10.2); CHOL/HDL RATIO 3.7 (4.5-6.4); CREATININE 0.81 mg/dL (0.60-1.10); TOTAL PROTEIN 7.3 g/dL (5.8-8.1)
[2017-09-19 14:08] LABS: ADD URINE MICROSCOPIC NO
== END 2017-09-19 13:15 | disposition home or self-care (01) ==
LOC: LAB 13:14
PROVIDERS: ATTEND General Practice
DX: M06.9 Rheumatoid arthritis, unspecified (principal); E11.9 Type 2 diabetes mellitus without complications; E78.5 Hyperlipidemia, unspecified; K21.9 Gastro-esophageal reflux disease without esophagitis; N52.9 Male erectile dysfunction, unspecified; R19.7 Diarrhea, unspecified; R93.8 Abnormal findings on diagnostic imaging of other specified body structures; Z79.899 Other long term (current) drug therapy; Z12.5 Encounter for screening for malignant neoplasm of prostate
CPT/HCPCS: 36415; 80053; 80061; 81001; 83036; 85025

== ENCOUNTER 2017-12-19 13:04 | Outpatient (CLI) ==
--- NOTE | 2017-12-19 13:25 | DI ---
EXAM: Two views of the chest. History: Chest pain. Comparison: Chest radiograph 04/25/2017, chest CT 04/25/2017 Findings: Heart size is normal. No focal consolidation. No appreciable pleural fluid and no pneumo thorax. No acute osseous abnormalities. Atherosclerotic vascular calcifications of the thoracic aort a Impression: No acute cardiopulmonary process.
== END 2017-12-19 13:05 | disposition home or self-care (01) ==
LOC: RAD 13:04
PROVIDERS: ATTEND General Practice
DX: R09.89 Other specified symptoms and signs involving the circulatory and respiratory systems (principal); R59.0 Localized enlarged lymph nodes; J02.9 Acute pharyngitis, unspecified; R05 Cough
CPT/HCPCS: 36415; 80053; 85025; 86308; 87502; 87651

== ENCOUNTER 2018-04-11 11:31 | Outpatient (CLI) ==
--- NOTE | 2018-04-11 12:27 | DI ---
EXAM: Four views of the left hand. History: Left hand pain, rheumatoid arthritis. Findings: No acute fracture or dislocation.. Periarticular osteopenia. Atherosclerotic vascular ca lcifications. Mild to moderate symmetric polyarticular joint space narrowing. No significant osteop hyte formation. No isaac osseous erosions. Impression: 1. No acute osseous abnormality. 2. Periarticular osteopenia and mild to moderate symmetric polyarticular joint space narrowing sugge sting rheumatoid arthritis. 3. Atherosclerotic vascular disease
--- NOTE | 2018-04-11 12:27 | DI ---
EXAM: Four views of the right hand. History: Right hand pain, rheumatoid arthritis. Findings: No acute fracture or dislocation. There is periarticular osteopenia. There is mild to mo derate symmetric polyarticular joint space narrowing. No significant osteophyte formation. No isaac osseous erosions. Atherosclerotic vascular calcifications. No significant soft tissue swelling. Impression: 1. No acute osseous abnormality. 2. Periarticular osteopenia and mild to moderate symmetric joint space narrowing suggesting rheumato id arthritis. No isaac osseous erosions. 3. Atherosclerotic vascular disease
--- NOTE | 2018-04-11 12:46 | DI ---
EXAM: Two views of the right foot. History: Right foot, rheumatoid arthritis. Findings: No acute fracture or dislocation. Atherosclerotic vascular calcifications. Periarticular osteopenia. There are erosions seen within the third, fourth and fifth metatarsal heads. Small ero joslyn seen at the base of the distal phalanx of the first digit. Mild to moderate polyarticular joint space narrowing. Enthesiophyte at the insertion of the Achilles tendon. Impression: 1. No acute osseous abnormality. 2. Rheumatoid arthritis with erosions involving the third, fourth and fifth metatarsal heads. 3. Atherosclerotic vascular disease
--- NOTE | 2018-04-11 12:46 | DI ---
EXAM: Two views of the left foot. History: Left foot, rheumatoid arthritis. Findings: No acute fracture or dislocation. There are erosions within the second, third, fourth and fifth metatarsal heads. Atherosclerotic vascular calcifications. Periarticular osteopenia. Minima l calcaneal enthesiopathy. Mild to moderate polyarticular joint space narrowing. Impression: 1. No acute osseous abnormality. 2. Rheumatoid arthritis with erosions involving the second, third, fourth and fifth metatarsal heads . 3. Atherosclerotic vascular disease
== END 2018-04-11 11:32 | disposition home or self-care (01) ==
LOC: RAD 11:31
PROVIDERS: ATTEND Internal Medicine Rheumatology
DX: M05.79 Rheumatoid arthritis with rheumatoid factor of multiple sites without organ or systems involvement (principal)

== ENCOUNTER 2018-05-22 09:34 | Outpatient (CLI) | END 2018-05-22 09:35 | disposition home or self-care (01) | LOC: RHC-LAB 09:34 | PROVIDERS: ATTEND General Practice | DX: E11.9 Type 2 diabetes mellitus without complications (principal); E78.5 Hyperlipidemia, unspecified; M06.9 Rheumatoid arthritis, unspecified; K21.9 Gastro-esophageal reflux disease without esophagitis; Z79.899 Other long term (current) drug therapy | CPT/HCPCS: 36415; 80053; 80061; 81001; 83036; 85025 ==

== ENCOUNTER 2019-01-31 08:13 | Outpatient (CLI) | END 2019-01-31 08:14 | disposition home or self-care (01) | LOC: LAB 08:13 | PROVIDERS: ATTEND Internal Medicine Rheumatology | DX: Z79.899 Other long term (current) drug therapy (principal) | CPT/HCPCS: 36415; 80053; 85025 ==

== ENCOUNTER 2019-03-20 08:21 | Outpatient (CLI) | END 2019-03-20 08:22 | disposition home or self-care (01) | LOC: RHC-LAB 08:21 | PROVIDERS: ATTEND General Practice | DX: M06.9 Rheumatoid arthritis, unspecified (principal); E11.9 Type 2 diabetes mellitus without complications; K21.9 Gastro-esophageal reflux disease without esophagitis; Z79.899 Other long term (current) drug therapy | CPT/HCPCS: 36415; 80053; 81001; 85025 ==

== ENCOUNTER 2019-03-26 11:17 | Outpatient (CLI) ==
--- NOTE | 2019-03-26 11:55 | DI ---
EXAM: Two views of the chest. History: Rheumatoid arthritis. Comparison: Chest radiograph 12/19/2017 Findings: Heart is borderline enlarged. No focal consolidation. No appreciable pleural fluid and n o pneumothorax. No acute osseous abnormalities. Atherosclerotic vascular calcifications. Impression: Borderline cardiomegaly without acute disease in the chest
== END 2019-03-26 11:18 | disposition home or self-care (01) ==
LOC: LAB 11:17
PROVIDERS: ATTEND General Practice
DX: R05 Cough (principal); R06.02 Shortness of breath; M06.9 Rheumatoid arthritis, unspecified; E11.9 Type 2 diabetes mellitus without complications; K21.9 Gastro-esophageal reflux disease without esophagitis; N52.9 Male erectile dysfunction, unspecified; E78.5 Hyperlipidemia, unspecified; Z79.899 Other long term (current) drug therapy
CPT/HCPCS: 36415; 83880; 84145; 85025